=== PATIENT | female | born 1970 | race Caucasian/White ===

== ENCOUNTER → 2019-06-06 10:47 | Outpatient (CLI) | payer OTHER, SELFPAY ==
--- NOTE | ~2019-06-06 | XR_ITS ---
EXAMINATION: XR chest 2V EXAM DATE: 06/06/2019 11:06 INDICATION: Persistent cough. Right-sided neck swelling, pain to right of sternum. TECHNIQUE: Frontal and lateral projections of the chest obtained and reviewed. There is no prior elisabeth dy for comparison. FINDINGS: The lungs are clear. There are no pleural effusions. The cardiomediastinal silhouette is within normal limits. There is no pneumothorax suspected. The bones and soft tissues are unremarkab le. IMPRESSION: Unremarkable chest x-ray exam. Reviewed, dictated and finalized at location A.
== END ==
PROVIDERS: PCP Nurse Practitioner Adult Health; Visit Provider Nurse Practitioner Adult Health
DX: R05 Cough (principal)
CPT/HCPCS: 71046

== ENCOUNTER → 2019-09-12 12:18 | Outpatient (CLI) | payer OTHER, SELFPAY ==
--- NOTE | ~2019-09-12 | MM_ITS ---
EXAMINATION: MM screening [facility] BI w zoraida HISTORY: Screening mammogram TECHNIQUE: Craniocaudal and mediolateral oblique 3-D tomosynthesis images were obtained and synthetic 2-D images were generated. CAD analysis was submitted and interpreted. COMPARISON: 10/25/2015, 10/19/2015, 11/30/2013 BREAST PARENCHYMAL COMPOSITION: There are scattered areas of fibroglandular density. FINDINGS: There is chronic focal asymmetry in the upper outer quadrant of the left breast which demon strates decrease in density since the comparison examinations. There is no evidence of suspicious mas s, calcification, or architectural distortion to suggest malignancy in either breast. There has been no suspicious interval change. IMPRESSION: 1. No mammographic evidence of malignancy. 2. Recommend routine screening mammography in one year. BI-RADS Category 2: Benign finding(s). Reviewed, dictated and finalized at location A.
== END ==
PROVIDERS: Visit Provider Obstetrics & Gynecology
DX: Z12.31 Encounter for screening mammogram for malignant neoplasm of breast (principal)
CPT/HCPCS: 77063; 77067

== ENCOUNTER 2019-10-13 14:33 | Emergency (ER) | payer OTHER, SELFPAY ==
--- NOTE | ~2019-10-13 | XR_ITS ---
XR chest 1V portable DATE: 10/13/2019 16:48 INDICATION: Cough, shortness of breath, fever TECHNIQUE: Portable AP chest on 10/13/2019 at 1647 hours COMPARISON: 06/06/2019 2 view chest FINDINGS: There is bibasilar infiltrate and/or atelectasis at the lower lung zones, right greater leanne n left. Normal heart size. No hilar or mediastinal enlargement. No pulmonary vascular congestion or pleural effusion or pneumothorax. IMPRESSION: Bibasilar infiltrate and/or atelectasis, right greater than left Reviewed, dictated and finalized at location A.
[2019-10-13 15:18] VITALS: BP 121/76; PULSE 87; RESP 17; TEMP 37.2; O2SAT 95
--- NOTE | 2019-10-13 15:21 | PC.NURSE ---
Pt 95% on room air, after exertion (running in place and jumping jacks) O2 sat went to 92% and back up to 95% on room air.
--- NOTE | 2019-10-13 15:26 | ECG_ITS ---
Measurements Intervals [place] Rate: 81 P: 30 [place]: 127 QRS: 7 QRSD: 86 T: 9 QT: 367 QTc: 427 Interpretive Statements SINUS RHYTHM BORDERLINE T WAVE ABNORMALITY- INFERIOR LEADS BORDERLINE ECG Electronically Signed On 10-13-2019 15:51:06 CDT by Eddie Mehta D.O.
--- NOTE | 2019-10-13 15:27 | ED.FEVER ---
HPI - Fever General Chief Complaint: Upper Respiratory Infection Stated Complaint: cough, fever, sob Time Seen by Provider: 10/13/19 14:59 Source: patient Mode of arrival: ambulatory Limitations: no limitations History of Present Illness HPI Narrative: This patient is a 48 year old female who presents for evaluation of chest pain and sob. She developed symptoms of COVID19 over 1.5 weeks ago. She develops nausea , cough, sinus congestion and diarrhea after having contact with someone that was positive for COVID. She was tested 1 week ago and she was found positive for COVID 19 as well. She has been having intermittent sob and intermittent midsternal chest pain. Last night she had brief episodes of shortness while she was trying to sleep. She also reported an episode today before arrival. She states she is not sob now but she has been having intermittent sharp chest pain. She denies abdominal pain, vomiting. She called her PCP and they were unable to see her due to her complaints. Patient is concerned she may have pneumonia. Related Data Allergies Allergy/AdvReac Type Severity Reaction Status Date / Time No Known Drug Allergies Allergy Unknown Verified 11/27/15 12:53 Review of Systems Review of Systems: All systems reviewed & are unremarkable except as noted in HPI and below Constitutional: Constitutional: Reports fatigue and Reports fever(s) ENT: Reports dizziness and Reports nasal congestion Cardiovascular: Cardiovascular: Reports chest pain Respiratory: Respiratory: Reports cough and Reports dyspnea Gastrointestinal: Gastrointestinal: Denies abdominal pain, Reports diarrhea and Reports nausea Neurologic: Reports headache(s) PMFSH Past Medical History Medical History (Updated 10/13/19 @ 17:15 by Ketty Gallardo MD) Pre-diabetes Surgical History Surgical History (Updated 10/13/19 @ 17:13 by Ketty Gallardo MD) Hx of appendectomy Social History Social History (Updated 10/13/19 @ 17:09 by Ketty Gallardo MD) Smoking status: Never smoker Gender identity (if verbalized by the patient): Female Exam Narrative: Exam Narrative: GENERAL: , well-nourished, and in no acute distress. HEAD: Normocephalic, atraumatic EYES: PERRLA and EOMI, conjunctiva clear without discharge EARS: TM's clear bilaterally without erythema or dullness NOSE: Nares clear, no rhinorrhea or epistaxis THROAT:Mucous membranes moist, Oropharynx normal without erythema, exudate, peritonsillar swelling or fluctuance NECK: Supple, without lymphadenopathy or mass RESPIRATORY: No respiratory distress, Airway patent, Respirations non-labored, Clear to auscultation without rales, rhonchi or wheeze HEART: Regular rate and rhythm. No murmur heard. Normal peripheral pulses. ABDOMEN: Soft, nontender, nondistended, normal active bowel sounds. No masses. No rebound or guarding, No organomegaly. EXTREMITIES: No edema, normal strength with full range of motion. SKIN: Warm, dry, normal color without rash NEURO: Alert and oriented x3. CN 2-12 grossly intact. No focal deficits. PSYCH: Normal mood and affect. Course Reevaluation(s) Reevaluation #1: I discussed with patient that she will be discharged home. Labs show leukopenia due to this virus. Xray shows mild infiltrates. She is not hypoxic so she will be discharged. She was given return precautions. Date: 10/13/19 Time: 17:12 Vital Signs Vital signs: Vital Signs Temperature 98.9 F 10/13/19 15:18 Pulse Rate 87 10/13/19 15:18 Respiratory Rate 17 10/13/19 15:18 Blood Pressure 121/76 10/13/19 15:18 Pulse Oximetry 95 10/13/19 15:18 Temperature 98.9 F 10/13/19 15:18 Pulse Rate 84 10/13/19 17:44 Respiratory Rate 17 10/13/19 17:44 Blood Pressure 115/70 10/13/19 17:44 Pulse Oximetry 97 10/13/19 17:44 MDM - Fever Medical Records Attestation: I reviewed the patient's medical records. Lab Data Attestation: I reviewed the patient's lab
[2019-10-13 15:51] VITALS: O2SAT 95
[2019-10-13 16:01] LABS: Basophils Percent Auto 0.2 % (0.2-1.2); Hematocrit 42.6 % (37.0-47.0); Hemoglobin 14.3 g/dL (12.0-15.0); Immature Granulocyte Absolute 0.01 K/mm3 (0.00-0.031); Immature Granulocyte Percent A 0.2 % (0-0.5); Lymphocytes Absolute Auto 1.32 K/mm3 (0.9-3.2); Lymphocytes Percent Auto 30.5 % (18.3-44.2); Mean Corpuscular HGB Conc 33.6 g/dl (32-36); Mean Corpuscular Hemoglobin 29.6 pg (26-34); Mean Corpuscular Volume 88.2 fl (80-100); Mean Platelet Volume 12.1 fl (7.4-10.4); Monocytes Absolute Auto 0.2 K/mm3 (0.1-0.6); Monocytes Percent Auto 4.8 % (2.6-8.5); Neutrophils Absolute Auto 2.8 K/mm3 (1.3-6.7); Neutrophils Percent Auto 64.3 % (45.5-73.1); Platelet Count Result 117 k/mm3 (150-375); Red Blood Count 4.83 M/mm3 (4.2-5.4); Red Cell Distribution Width 11.9 % (11.5-14.5); White Blood Count 4.3 K/mm3 (4.5-10.0)
[2019-10-13 16:04] LABS: Add Urine Microscopic? YES; Appearance Urine Cloudy (Clear); Bacteria Urine Trace /hpf; Bilirubin Urine Negative (Negative); Blood Urine Negative (Negative); Color Urine Yellow (Yellow); Glucose Urine UA Negative (Negative); Ketones Urine Negative (Negative); Leukocyte Esterase Ur Trace LEU/UL (Negative); Mucus Urine Few /lpf; Nitrate Urine Negative (Negative); Protein Urine 1+ mg/dL (Negative); RBC Urine 0-2 /hpf (0-2); Specific Grav Ur 1.025 (1.001-1.035); Squamous Epithelial Cell Urine Many /hpf (Few); Urobilinogen Urine Negative mg/dL (<2.0)
[2019-10-13 16:14] LABS: Alanine Aminotransferase 35 U/L (4-35); Albumin Level 4.3 g/dL (3.5-5.1); Alkaline Phosphatase 68 U/L (38-126); Anion Gap 11 mmol/L (8-16); Aspartate Amino Transferase 32 U/L (14-36); Bilirubin,Total 0.3 mg/dL (0.2-1.3); Blood Urea Nitrogen 11 mg/dL (7-17); Calcium 9.2 mg/dL (8.4-10.2); Carbon Dioxide 24 mmol/L (22-30); Chloride 100 mmol/L (98-107); Estimated CRCL calculation 80 ml/min; Estimated Glomerular Filt Rate > 60; Glucose 155 mg/dL (65-105); Lipase 114 U/L (23-300); Potassium 3.9 mmol/L (3.4-5.0); Sodium 135 mmol/L (137-145)
[2019-10-13 16:16] LABS: D Dimer < 0.22 ug/mL (<0.48)
[2019-10-13 16:23] LABS: NT Pro B Type Natriuretic Pept 25 PG/ML (5-100); Troponin I < 0.012 ng/mL (0.000-0.034)
[2019-10-13 17:08] LABS: CRP 1.6 mg/dL (<1.0)
[2019-10-13 17:44] VITALS: BP 115/70; PULSE 84; RESP 17; O2SAT 97
== END 2019-10-13 17:46 | disposition home or self-care (01) ==
PROVIDERS: Emergency Provider General Practice
DX: U07.1 COVID-19 (principal); R94.31 Abnormal electrocardiogram [ECG] [EKG]
CPT/HCPCS: 36415; 71045; 80053; 81001; 83690; 83880; 84484; 85025; 85380; 85610; 85730; 86140; 93005; 99284

== ENCOUNTER → 2020-08-17 10:02 | Outpatient (CLI) | payer OTHER, SELFPAY ==
--- NOTE | ~2020-08-17 | XR_ITS ---
XR foot RT min 3V DATE: 08/17/2020 10:23 INDICATION: Right foot pain TECHNIQUE: 4 views COMPARISON: None FINDINGS: Mild plantar calcaneal enthesopathy. Mild osteoarthritis at the first metatarsophalangeal joint. Osteopenia. No fracture or dislocation, periosteal reaction or bone destruction. IMPRESSION: Mild plantar calcaneal enthesopathy Mild osteoarthritis at first metatarsophalangeal joint Osteopenia Reviewed, dictated and finalized at location A.
--- NOTE | ~2020-08-17 | XR_ITS ---
XR knee RT 3V 08/17/2020 10:24 INDICATION: Right knee pain PROCEDURE: 4 views right knee COMPARISON: No prior studies for comparison. FINDINGS: Fracture, dislocation or subluxation is not identified. No significant joint effusion. The soft tissues appear within normal limits. No foreign bodies are identified. IMPRESSION: 1: NO ACUTE BONE OR JOINT ABNORMALITY IDENTIFIED. Reviewed, dictated and finalized at location A.
--- NOTE | ~2020-08-17 | XR_ITS ---
XR foot LT min 3V DATE: 08/17/2020 10:23 INDICATION: Left foot pain. Heel pain. No known injury. TECHNIQUE: 4 views COMPARISON: None FINDINGS: Mild plantar calcaneal enthesopathy without erosive change or periostitis. Osteopenia. No fracture, dislocation, periosteal reaction or bone destruction. IMPRESSION: Mild plantar calcaneal enthesopathy Osteopenia Reviewed, dictated and finalized at location A.
== END ==
PROVIDERS: PCP Family Medicine; Visit Provider Nurse Practitioner Family
DX: M25.50 Pain in unspecified joint (principal); M77.32 Calcaneal spur, left foot; M85.872 Other specified disorders of bone density and structure, left ankle and foot; M77.31 Calcaneal spur, right foot; M19.071 Primary osteoarthritis, right ankle and foot; M85.871 Other specified disorders of bone density and structure, right ankle and foot
CPT/HCPCS: 73562; 73630

== ENCOUNTER → 2020-11-15 13:01 | Outpatient (CLI) | payer OTHER, SELFPAY ==
--- NOTE | ~2020-11-15 | DEXA_ITS ---
Bone Density Report Name: Tammy Alvarenga Age: 49 Sex: Female Ethnicity: White Date of : 1970 Indication: postmenopausal; screening for osteoporosis; Referring Provider: Angely Brown Study: Bone densitometry was performed. Exam Date: November 15, 2020 Accession number: [id number] Bone Density: Region BMD T-score Z-score Classification AP Spine (L1-L4) 1.024 -0.2 0.6 Normal Femoral Neck (Left) 0.759 -0.8 0.0 Normal Total Hip (Left) 0.970 0.2 0.8 Normal Femoral Neck (Right) 0.774 -0.7 0.2 Normal Total Hip (Right) 0.967 0.2 0.7 Normal Total Hip Mean 0.969 0.2 0.8 Normal World Health Organization criteria for BMD impression classify patients as: Normal (T-score at or above -1.0), Osteopenia (T-score between -1.0 and -2.5), or Osteoporosis (T-score at or below -2.5). 10-year Fracture Risk: FRAX not reported because: All T-scores for Spine Total, Hip Total, Femoral Neck at or above -1.0 Clinical Information Provided by Patient: Has used the following medications: Calcium Patient maximum height was 63 No regular weight bearing exercise Does not regularly consume dairy products Drinks caffeinated beverages Onset of menses at age 9 Number of children 3 Impression: The patient has normal bone mass. Discussion: BONE DENSITY IS ABOVE THE MINIMUM DESIRABLE LEVEL AT ALL SKELETAL SITES TESTED. This patient?s bone mineral density is above the minimum desirable level (T-score -1.0 or better) at all sites measured. The patient should follow a healthful lifestyle (good nutrition with adequate calcium and vitamin D, and appropriate weight-bearing exercise). Follow-Up: Consider repeating this study in 5 years or sooner if there is some new clinical indication. Reported by: DANIELITO on 11/15/2020 1:30:00 PM. Reviewed, dictated and finalized at location [facility]
== END ==
PROVIDERS: PCP Family Medicine; Visit Provider Nurse Practitioner Family
DX: M85.88 Other specified disorders of bone density and structure, other site (principal); Z78.0 Asymptomatic menopausal state
CPT/HCPCS: 77080

== ENCOUNTER → 2020-11-15 13:03 | Outpatient (CLI) | payer OTHER, SELFPAY ==
--- NOTE | ~2020-11-15 | MM_ITS ---
EXAMINATION: MM screening [facility] BI w zoraida HISTORY: Screening TECHNIQUE: Craniocaudal and mediolateral oblique 3-D tomosynthesis images were obtained and synthetic 2-D images were generated. CAD analysis was submitted and interpreted. COMPARISON: Comparison to multiple prior studies sequentially, with oldest reviewed study dated 11/26. BREAST PARENCHYMAL COMPOSITION: Breast composed of scattered areas of fibroglandular density. FINDINGS: There is no evidence of suspicious mass, calcification, or architectural distortion to sugg est malignancy in either breast. There has been no suspicious interval change. IMPRESSION: 1. No mammographic evidence of malignancy. 2. Recommend routine screening mammography in one year. BI-RADS Category 1: Negative Reviewed, dictated and finalized at location A.
== END ==
PROVIDERS: Visit Provider Obstetrics & Gynecology
DX: Z12.31 Encounter for screening mammogram for malignant neoplasm of breast (principal)
CPT/HCPCS: 77063; 77067

== ENCOUNTER 2020-12-05 16:18 | Outpatient (CLI) | payer OTHER, SELFPAY ==
[2020-12-05 16:40] LABS: Basophils Percent Auto 0.3 % (0.2-1.2); Eosinophils Absolute Auto 0.1 K/mm3 (0-0.3); Eosinophils Percent Auto 0.9 % (0-4.4); Hematocrit 41.6 % (37.0-47.0); Hemoglobin 13.8 g/dL (12.0-15.0); Immature Granulocyte Absolute 0.03 K/mm3 (0.00-0.031); Immature Granulocyte Percent A 0.3 % (0-0.5); Lymphocytes Absolute Auto 2.07 K/mm3 (0.9-3.2); Lymphocytes Percent Auto 21.2 % (18.3-44.2); Mean Corpuscular HGB Conc 33.2 g/dl (32-36); Mean Corpuscular Hemoglobin 30.1 pg (26-34); Mean Corpuscular Volume 90.8 fl (80-100); Mean Platelet Volume 10.9 fl (7.4-10.4); Monocytes Absolute Auto 0.7 K/mm3 (0.1-0.6); Monocytes Percent Auto 7.6 % (2.6-8.5); Neutrophils Absolute Auto 6.8 K/mm3 (1.3-6.7); Neutrophils Percent Auto 69.7 % (45.5-73.1); Platelet Count Result 186 k/mm3 (150-375); Red Blood Count 4.58 M/mm3 (4.2-5.4); Red Cell Distribution Width 11.8 % (11.5-14.5); White Blood Count 9.8 K/mm3 (4.5-10.0)
[2020-12-05 17:07] LABS: Alanine Aminotransferase 15 U/L (4-35); Albumin Level 4.9 g/dL (3.5-5.1); Alkaline Phosphatase 68 U/L (38-126); Amylase 77 U/L (30-110); Anion Gap 8 mmol/L (8-16); Aspartate Amino Transferase 19 U/L (14-36); Bilirubin,Total 0.6 mg/dL (0.2-1.3); Blood Urea Nitrogen 13 mg/dL (7-17); Calcium 9.6 mg/dL (8.4-10.2); Carbon Dioxide 29 mmol/L (22-30); Chloride 102 mmol/L (98-107); Estimated Glomerular Filt Rate > 60; Glucose 114 mg/dL (65-110); Lipase 81 U/L (23-300); Potassium 4.2 mmol/L (3.4-5.0); Sodium 139 mmol/L (137-145)
== END 2020-12-05 16:19 | disposition home or self-care (01) ==
LOC: ANHLAB 16:19
PROVIDERS: PCP Family Medicine; Visit Provider Nurse Practitioner Family
DX: R10.32 Left lower quadrant pain (principal); Z87.19 Personal history of other diseases of the digestive system
CPT/HCPCS: 36415; 80053; 82150; 83690; 85025

== ENCOUNTER → 2020-12-06 09:18 | Outpatient (CLI) | payer OTHER, SELFPAY ==
--- NOTE | ~2020-12-06 | CT_ITS ---
EXAMINATION: CT abdomen pelvis w con DATE: 12/06/2020 10:02 INDICATION: Left lower quadrant abdominal pain. TECHNIQUE: Computed tomography (CT) of the abdomen and pelvis was performed with 100 mL Omnipaque-350 intravenous contrast. Automated exposure control and iterative reconstruction technique were employe d. The dose-length product was 711.57 mGy-cm. COMPARISON: None FINDINGS: Lung bases are clear. Heart size is normal. No pericardial or pleural effusion. Liver, gallbladder, s pleen, pancreas, bilateral adrenal glands and kidneys are normal. Postoperative change of prior appen dectomy with suture line along the tip of the cecum. No bowel obstruction. Mild scattered diverticulo sis. There is mild wall thickening at the distal sigmoid colon with prominent inflammatory stranding surrounding a diverticulum consistent with diverticulitis. Bladder, anteverted uterus and bilateral o varies are unremarkable. There are a couple tubal ligation rings more along the right broad ligament. No left-sided tubal ligation ring is displaced and likely free within the peritoneal space situated between the right side of the uterine fundus and posterior margin of the right ovary. No abscess or f ree intraperitoneal gas or fluid. No pathologically enlarged abdominal or pelvic lymphadenopathy. Mi ld lumbar levocurvature. IMPRESSION: 1. Radiographically uncomplicated sigmoid diverticulitis. 2. Likely tubal ligation rings with displacement of the left-sided ring. Correlate with gynecologic h istory. Reviewed, dictated and finalized at location B. IMPRESSION: 1. Radiographically uncomplicated sigmoid diverticulitis. 2. Likely tubal ligation rings with displacement of the left-sided ring. Correl ate with gynecologic history.
== END ==
PROVIDERS: PCP Family Medicine; Visit Provider Nurse Practitioner Family
DX: R10.32 Left lower quadrant pain (principal)
CPT/HCPCS: 74177; Q9967

== ENCOUNTER 2021-09-16 02:21 | Day surgery (SDC) | payer OTHER, SELFPAY ==
[2021-08-29 15:30] VITALS: BMI 29.2
--- NOTE | 2021-09-13 13:58 | PM.HPGS ---
History of Present Illness History of Present Illness Consent: Risks, benefits, and alternatives have been discussed and questions answered. Patient agrees to proceed with procedure. Chief complaint: nausea & reflux; change in bowel habits Narrative: Tammy Alvarenga is a 50 year old female who was diagnosed with diverticulitis back in November.? She was treated with? Augmentin followed by Cipro approximately 3 weeks after completing the ciprofloxaci she developed? C diff infection.? She had a short course of vancomycin with improvement of symptoms but have recurrent C diff infection 3-4 weeks later.? She was then on Vancomycin taper dose for 30 days? Which she completed about a month ago.? Reports 3-4 bowel movements daily, stools most often are formed but does have occasional softer stools. Review of Systems Review of Systems: All systems reviewed & are unremarkable except as noted in HPI and below PMFSH Past Medical History Medical History BMI 28.0-28.9,adult BMI 29.0-29.9,adult BMI 30.0-30.9,adult BMI 31.0-31.9,adult Nausea PCOS (polycystic ovarian syndrome) Pre-diabetes Surgical History Surgical History H/O section Hx of appendectomy Family History Family History Father Muscular dystrophy Mother Diabetes mellitus Acute myocardial infarction Morbid obesity Heart disease Sibling Muscular dystrophy Sibling Muscular dystrophy, myotonic Heart disease Diabetes mellitus Social History Social History Smoking status: Never smoker Second hand tobacco smoke exposure: No Alcohol intake: current Drinks per week: 1 Substance use: never Substance use type: does not use Living arrangements: with family 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 Gender identity (if verbalized by the patient): Female Sexual Orientation (if Verbalized by the Patient): Straight or Heterosexual Spiritual care concerns: No Meds Home Medications and Allergies Home Medications Medication Instructions Recorded Confirmed Type spironolactone 100 mg tablet 100 mg PO DAILY 05/24/20 08/29/21 History tretinoin 0.05 % topical gel 1 applic topical QHS 05/24/20 08/29/21 History (Atralin) blood-glucose meter (Accu-Chek #1 ea 07/17/20 08/29/21 Rx Guide Glucose Meter) blood sugar diagnostic (Accu-Chek #100 ea 01/14/21 08/29/21 Rx Guide test strips) lancets (Accu-Chek Multiclix #100 ea 04/29/21 08/29/21 Rx Lancet) metformin 500 mg tablet,extended 500 mg PO DAILY #90 tabs 08/05/21 08/29/21 Rx release 24 hr sodium sul 1.479 gram-potas ch See Rx Instructions PO PER PKG DIR 08/15/21 08/29/21 Rx 0.188 gram-magnes sul 0.225 gram #24 tabs tablet (Sutab) lactobacillus combination no.8 3 1 cell PO DAILY 08/29/21 08/29/21 History billion cell capsule semaglutide 0.25 mg or 0.5 mg (2 0.25 mg (0.2 mL) subcut WEEKLY 09/12/21 Rx mg/1.5 mL) subcutaneous pen #1.5 mL injector (makerist) Allergies Allergy/AdvReac Type Severity Reaction Status Date / Time ciprofloxacin AdvReac Intermediate Joint Pain Verified 09/16/21 10:13 Exam Const: General: alert Orientation/consciousness: patient oriented x3 Resp: Auscultation: clear to auscultation bilaterally Cardio: Rhythm: regular rhythm GI: GI Palp: Yes Soft to palpation and No Tenderness to palpation present (GI) Neuro: General: patient oriented x3 Assessment and Plan Assessment and plan (1) Nausea: Code(s): R11.0 - Nausea Status: Acute Assessment and Plan: EGD with possible biopsy or dilatation or cautery. (2) Change in stool habits: Code(s): R19.4 - Change in bowel habit Status: Acute
[2021-09-16 10:35] VITALS: BP 135/64; PULSE 83; RESP 18; TEMP 36.9; O2SAT 100; BMI 29.7
[2021-09-16] MEDS: LACTATED RINGERS 1,000 ML 150 ML IV CONT (10:37)
[2021-09-16 10:52] LABS: Glucose Point of Care 102 mg/dl (65-105)
--- NOTE | 2021-09-16 11:10 | WPDANESEPPF ---
Anes - Initial Pre Proc Eval Procedure: Operation Date: 09/16/21 11:15 Proposed Procedures p Esophagogastroduodenoscopy & Colonoscopy - Klaus Martínez MD Date/Time: 09/16/21 11:10 Surgeon: Klaus Martínez MD Pre Op Diagnosis: nausea & reflux; change in bowel habits Patient Data Age: 50 Gender: F Height: 1.6 m Weight: 76.1 kg Last Vital Signs Temp 98.5 F 09/16/21 10:35 Pulse 83 09/16/21 10:35 Resp 18 09/16/21 10:35 BP 135/64 09/16/21 10:35 Pulse Ox 100 09/16/21 10:35 O2 Del Method Room Air 09/16/21 10:35 Allergies Allergy/AdvReac Type Severity Reaction Status Date / Time ciprofloxacin AdvReac Intermediate Joint Pain Verified 09/16/21 10:13 Home Medications Medication Instructions Recorded Confirmed Type spironolactone 100 mg tablet 100 mg PO DAILY 05/24/20 08/29/21 History tretinoin 0.05 % topical gel 1 applic topical QHS 05/24/20 08/29/21 History (Atralin) blood-glucose meter (Accu-Chek #1 ea 07/17/20 08/29/21 Rx Guide Glucose Meter) blood sugar diagnostic (Accu-Chek #100 ea 01/14/21 08/29/21 Rx Guide test strips) lancets (Accu-Chek Multiclix #100 ea 04/29/21 08/29/21 Rx Lancet) metformin 500 mg tablet,extended 500 mg PO DAILY #90 tabs 08/05/21 08/29/21 Rx release 24 hr sodium sul 1.479 gram-potas ch See Rx Instructions PO PER PKG DIR 08/15/21 08/29/21 Rx 0.188 gram-magnes sul 0.225 gram #24 tabs tablet (Sutab) lactobacillus combination no.8 3 1 cell PO DAILY 08/29/21 08/29/21 History billion cell capsule semaglutide 0.25 mg or 0.5 mg (2 0.25 mg (0.2 mL) subcut WEEKLY 09/12/21 Rx mg/1.5 mL) subcutaneous pen #1.5 mL injector (Ozempic) Laboratory Tests 09/16/21 10:48 POC Capillary Glucose 102 mg/dl mg/dl (65-105) Patient hx anesthesia problems: none Family hx anesthesia problems: none Results Review: All pre-operative results and documents have been reviewed as part of the pre-operative evaluation. [facility] Past Medical History Medical History (Updated 08/05/21 @ 13:03 by Stephanie Vaca APN-C) BMI 28.0-28.9,adult BMI 29.0-29.9,adult BMI 30.0-30.9,adult BMI 31.0-31.9,adult Nausea PCOS (polycystic ovarian syndrome) Pre-diabetes Surgical History Surgical History H/O section Hx of appendectomy Family History Family History Father Muscular dystrophy Mother Diabetes mellitus Acute myocardial infarction Morbid obesity Heart disease Sibling Muscular dystrophy Sibling Muscular dystrophy, myotonic Heart disease Diabetes mellitus Social History Social History Smoking status: Never smoker Second hand tobacco smoke exposure: No Alcohol intake: current Drinks per week: 1 Substance use: never Substance use type: does not use Living arrangements: with family 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 Gender identity (if verbalized by the patient): Female Sexual Orientation (if Verbalized by the Patient): Straight or Heterosexual Spiritual care concerns: No Anes - Eval Final PreProcedure Day of Procedure 09/16/21 11:10 Patient weight: normal Heart: regular rate and rhythm Lungs: clear to auscultation Airway: Mallampati scale class II Neurological: alert and oriented Last oral intake: >/= 8 hours ASA classification: II Emergent: no Anesthetic plan: proceed Anesthesia type and monitoring: general GIVS and standard monitoring Results Review: All pre-operative results and documents have been reviewed as part of the pre-operative evaluation. Informed Consent: The patient's anesthetic plan and its attendant risks and benefits were discussed with the patient/family/POA. Questions were solicited and answers prov
--- NOTE | 2021-09-16 12:04 | SUR.OPER ---
EGD: Start 11:43 End11:45 Colon: Start 11:52 End 12:01
[2021-09-16 12:05] VITALS: BP 117/71; PULSE 71; RESP 16; O2SAT 99
[2021-09-16 12:15] VITALS: BP 120/79; PULSE 71; RESP 17; O2SAT 100
[2021-09-16 12:25] VITALS: BP 148/98; PULSE 67; RESP 15; O2SAT 100
== END 2021-09-16 12:39 | disposition home or self-care (01) ==
PROVIDERS: PCP Family Medicine; Visit Provider Internal Medicine Gastroenterology
PROC: 0DJ08ZZ Inspection of Upper Intestinal Tract, Via Natural or Artificial Opening Endoscopic (ICD-10-PCS; CPT 43235; principal; 2021-09-16 11:15)
DX: R19.4 Change in bowel habit (principal); K57.30 Diverticulosis of large intestine without perforation or abscess without bleeding; K29.70 Gastritis, unspecified, without bleeding; R11.2 Nausea with vomiting, unspecified; R13.10 Dysphagia, unspecified; D17.5 Benign lipomatous neoplasm of intra-abdominal organs; Z79.84 Long term (current) use of oral hypoglycemic drugs; R73.03 Prediabetes; E28.2 Polycystic ovarian syndrome; R11.0 Nausea; K21.9 Gastro-esophageal reflux disease without esophagitis
CPT/HCPCS: 45385; 43239; 82948; 87081; 88305; J2704; J7120

== ENCOUNTER 2022-04-10 18:12 | Emergency (ER) | payer OTHER, SELFPAY ==
[2022-04-10 18:24] VITALS: BP 138/81; RESP 18; TEMP 36.7; O2SAT 98
--- NOTE | 2022-04-10 18:40 | ED.URI ---
HPI - URI/Sore Throat General Chief Complaint: Upper Respiratory Infection Stated Complaint: sorethroat Time Seen by Provider: 04/10/22 18:30 Source: patient, RN notes reviewed and old records reviewed Mode of arrival: ambulatory Limitations: no limitations History of Present Illness HPI Narrative: 51-year-old female who presents to [facility] with complaints of sore throat and some sinus drainage on Thursday which she initially thought was seasonal allergies with weather changes this week, Patient states yesterday her symptoms increased with headache, swollen tonsils, more painful swallowing. Patient reports that she has been taking Ibuprofen for her symptoms, denies any know fevers chills or sweats or body aches. Patient concerned about possibility of taking antibiotic since had C- Diff last year. MD elicited complaint: sore throat, rhinorrhea and nasal congestion Onset (ago): day(s) (3) Pain scale (0-10): 4 Able to tolerate fluids by mouth: Yes Exacerbating factors: swallowing Treatments prior to arrival: ibuprofen Related Data Home Medications Medication Instructions Recorded Confirmed spironolactone 100 mg tablet 100 mg PO DAILY 05/24/20 04/10/22 Allergies Allergy/AdvReac Type Severity Reaction Status Date / Time Proton Pump Inhibitors Allergy Severe Unknown Verified 04/10/22 18:25 famotidine Allergy Intermediate Unknown Verified 04/10/22 18:25 ciprofloxacin AdvReac Intermediate Joint Pain Verified 04/10/22 18:25 Review of Systems Review of Systems: CONSTITUTIONAL: Denies malaise, chills, sweats, or fever,no known fever. EYES: Denies visual changes, redness, or discharge. ENT: Reports rhinorrhea, congestion, sinus pain,no otalgia, positive for sore throat. CARDIOVASCULAR: Denies chest pain, palpitations, or edema. RESPIRATORY: Reports cough.? Denies dyspnea. GASTROINTESTINAL: Denies abdominal pain, nausea, vomiting, diarrhea SKIN: Denies rash or itching. MUSCULOSKELETAL: Denies myalgia. NEUROLOGIC:reports headache. All systems reviewed & are unremarkable except as noted in HPI and below PMFSH Past Medical History Medical History BMI 28.0-28.9,adult BMI 29.0-29.9,adult BMI 30.0-30.9,adult BMI 31.0-31.9,adult C. difficile colitis History of diverticulitis Nausea PCOS (polycystic ovarian syndrome) Pre-diabetes Surgical History Surgical History H/O section Hx of appendectomy Family History Family History Father Muscular dystrophy Mother Diabetes mellitus Acute myocardial infarction Morbid obesity Heart disease Sibling Muscular dystrophy Sibling Muscular dystrophy, myotonic Heart disease Diabetes mellitus Social History Social History Smoking status: Never smoker Second hand tobacco smoke exposure: No Alcohol intake: current Drinks per week: 0 Alcohol use details: rarely Substance use: never Substance use type: does not use Living arrangements: with family Occupation/Education: occupation 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 There is no relevant family history pertinent to the presenting complaint Exam Narrative: GENERAL: Well-appearing, well-nourished, and in no acute distress. HEAD: Normocephalic EYES: PERRLA, conjunctivae clear ENT: Nares clear, turbinates edematous and erythematous, clear discharge. Mucous membranes moist. TM pearly machado with dull light reflex bilaterally; no tragal
== END 2022-04-10 19:03 | disposition home or self-care (01) ==
PROVIDERS: Emergency Provider Registered Nurse; PCP Family Medicine
DX: J02.0 Streptococcal pharyngitis (principal); E28.2 Polycystic ovarian syndrome; R73.03 Prediabetes; Z86.19 Personal history of other infectious and parasitic diseases
CPT/HCPCS: 87880; 99213; G0463

== ENCOUNTER 2022-04-23 18:50 | Emergency (ER) | payer OTHER, SELFPAY ==
[2022-04-23 19:06] VITALS: BP 132/89; PULSE 82; RESP 20; TEMP 36.1; O2SAT 98
--- NOTE | 2022-04-23 19:21 | ED.URI ---
HPI - URI/Sore Throat General Chief Complaint: Upper Respiratory Infection Stated Complaint: swollen throat Time Seen by Provider: 04/23/22 19:16 Source: patient Mode of arrival: ambulatory Limitations: no limitations History of Present Illness HPI Narrative: Ms. Alvarenga is a 51-year-old female patient presenting to the clinic today with complaints of swollen throat, difficulty swallowing, and sore throat. She reports she just finished strep antibiotics for strep on Thursday and developed a sore throat on Thursday. States that she just started a new medication called Riana and is concerned that she may be having allergic reaction MD elicited complaint: sore throat and nasal congestion Related Data Home Medications Medication Instructions Recorded Confirmed spironolactone 100 mg tablet 100 mg PO DAILY 05/24/20 04/15/22 dapagliflozin 5 mg tablet (Farxiga) 5 mg PO QAM 04/15/22 04/15/22 Allergies Allergy/AdvReac Type Severity Reaction Status Date / Time Proton Pump Inhibitors Allergy Severe Unknown Verified 04/15/22 07:37 famotidine Allergy Intermediate Unknown Verified 04/15/22 07:37 ciprofloxacin AdvReac Intermediate Joint Pain Verified 04/15/22 07:37 Review of Systems Review of Systems: Pertinent positives per HPI. Patient denies any fever, chills, rash, headache, visual changes, dizziness, cough, shortness of breath, chest pain, palpitations, nausea, vomiting, diarrhea, constipation, abdominal pain, or any urinary issues. [facility] Past Medical History Medical History BMI 28.0-28.9,adult BMI 29.0-29.9,adult BMI 30.0-30.9,adult BMI 31.0-31.9,adult C. difficile colitis History of diverticulitis Nausea PCOS (polycystic ovarian syndrome) Pre-diabetes Surgical History Surgical History H/O section Hx of appendectomy Family History Family History Father Muscular dystrophy Mother Diabetes mellitus Acute myocardial infarction Morbid obesity Heart disease Sibling Muscular dystrophy Sibling Muscular dystrophy, myotonic Heart disease Diabetes mellitus Social History Social History Smoking status: Never smoker Second hand tobacco smoke exposure: No Alcohol intake: current Drinks per week: 0 Alcohol use details: rarely Substance use: never Substance use type: does not use Lack of Transportation: YES Lack of Food: Never True Current Housing: I Have Housing Concerned About Future Housing: No Difficulty Paying Gas/Electric Bills: No Difficulty Paying for Meds: No Currently Unemployed: No Education: Master's Degree or Higher Difficulty w/ Childcare or Family Care: No Living arrangements: with family Occupation/Education: 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 There is no relevant family history pertinent to the patient complaint. Exam Narrative: General: Well-developed, well nourished, in no apparent distress Head: Normocephalic, atraumatic Eyes: Pupils equally round and reactive to light bilaterally, EOM intact, sclera and conjunctive clear, no discharge, lids normal Ears: TMs intact and clear, ear canals clear, no drainage, grossly hearing normal. Nose: Nares patent, no discharge, no inflammation, no sinus tenderness. Mouth: Oral pharynx without lesions or masses, good dentition, MMM. Oropharynx red with mild tonsillar enlargement-no exudate or sign of thrush, postna
== END 2022-04-23 19:57 | disposition home or self-care (01) ==
PROVIDERS: Emergency Provider Nurse Practitioner Family; PCP Family Medicine
DX: J02.9 Acute pharyngitis, unspecified (principal); T38.3X5A Adverse effect of insulin and oral hypoglycemic [antidiabetic] drugs, initial encounter
CPT/HCPCS: 87081; 87880; 96372; 99213; G0463; J1100

== ENCOUNTER 2024-05-06 11:39 | Outpatient (CLI) | payer OTHER, SELFPAY ==
--- NOTE | ~2024-05-06 | MM_ITS ---
EXAMINATION: MM screening [facility] BI w zoraida HISTORY: Screening TECHNIQUE: Craniocaudal and mediolateral oblique 3-D tomosynthesis images were obtained and synthetic 2-D images were generated. CAD analysis was submitted and interpreted. COMPARISON: 11/15/2020 and dating back to 10/19/2015 BREAST PARENCHYMAL COMPOSITION: There are scattered areas of fibroglandular density. FINDINGS: Punctate calcifications detected bilaterally, stable and benign in appearance, dermal in or igin. Stable parenchymal pattern without suspicious microcalcifications, architectural distortion, discrete masses or significant asymmetry. IMPRESSION: 1. No mammographic/tomographic evidence of malignancy. 2. Recommend routine screening mammography in one year. BI-RADS Category 2: Benign finding(s). Reviewed, dictated and finalized at location A. [facility]
== END 2024-05-06 11:40 | disposition home or self-care (01) ==
LOC: MICIMG 11:42
PROVIDERS: PCP Obstetrics & Gynecology; Visit Provider Family Medicine
DX: Z12.31 Encounter for screening mammogram for malignant neoplasm of breast (principal)
CPT/HCPCS: 77063; 77067